=== PATIENT | male | born 1995 | race Caucasian/White ===

== ENCOUNTER 2018-05-21 13:24 | Emergency (ER) | payer BC ==
[2018-05-21] MEDS ORDERED: Ondansetron ODT TAB* 4 MG PO ONE (13:29)
[2018-05-21] MEDS ORDERED: NS 0.9% 1000 ML* 1,000 ML IV ONE (13:40)
[2018-05-21] MEDS ORDERED: Ondansetron INJ* 2 MG/ML VIAL IV ONE (13:40)
[2018-05-21] MEDS ORDERED: levETIRAcetam IV* 1,000 MG in NS 0.9% 100 ML* 100 ML IVPB ONE (13:40)
[2018-05-21] MEDS ORDERED: LORazepam INJ* 2 MG/ML 1 ML VIAL IV ONE (13:40)
[2018-05-21] MEDS ORDERED: Ondansetron ODT TAB* 4 MG ONE (13:51)
[2018-05-21] MEDS ORDERED: D5NS 0.9% 1000 ML BAG* 1,000 ML IV SCH (14:00)
[2018-05-21 14:11] LABS: ABS Basophils 0 10^3/ul (0-0.2); ABS Eosinophils 0.1 10^3/ul (0-0.6); ABS Lymphocytes 1.5 10^3/ul (1.0-4.8); ABS Monocytes 0.8 10^3/ul (0-0.8); ABS Neutrophils 7.2 10^3/ul (1.5-7.7); ABS Nucleated RBC 0 10^3/ul; Eosinophil % 1.2 % (0-6); Hematocrit 42 % (42-52); Hemoglobin 14.8 g/dl (14.0-18.0); Lymphocyte % 15.2 % (25-47); Mean Corpuscular HGB Conc 35 g/dl (31-36); Mean Corpuscular Hemoglobin 31 pg (27-31); Mean Corpuscular Volume 87 fL (80-94); Mean Platelet Volume 8.2 um3 (7.4-10.4); Nucleated Red Blood Cells % 0; Platelet Count 267 10^3/ul (150-450); Red Blood Count 4.83 10^6/ul (4.00-5.40); Red Cell Distribution Width 13 % (10.5-15); White Blood Count 9.6 10^3/ul (3.5-10.8)
[2018-05-21 14:16] LABS: INR 0.93 (0.77-1.02)
[2018-05-21 14:21] VITALS: BP 108/64
[2018-05-21 14:34] LABS: EGFR Non-African American 91.2 (>60)
--- NOTE | 2018-05-21 14:41 | RAD ---
INDICATION: Seizure. History of seizures COMPARISON: MRI brain December 28, 2016; CT brain June 06, 2016 TECHNIQUE: Noncontrast axial source images were acquired from the skull base to the vertex. FINDINGS: Ventricles/sulci: The ventricles and cisterns are normal in size and configuration for age. Brain parenchyma: There is no focal parenchymal finding, evidence of intracranial mass, or intracranial mass effect. Intracranial hemorrhage:None. Extra-axial spaces: There are no abnormal extra axial fluid collections or evidence of extra-axial mass. Calvarium: There is no calvarial fracture or other calvarial abnormality. Scalp: There is no evidence of scalp or extracalvarial soft tissue abnormality. Paranasal sinuses/mastoid: The paranasal sinuses and mastoid air cells are clear. Other: None. IMPRESSION: NEGATIVE NONCONTRAST CT EXAMINATION
--- NOTE | 2018-05-21 15:52 | ED ---
Andriy Davenport Natalie, scribed for Dave Whitfield MD on 05/21/18 at 1351 . Neurological HPI - HPI Summary HPI Summary: The patient is a 23 y/o M presenting to [facility] c/o having a seizure while in line to order food [employer]. He states that he knew he was going to have a seizure because he felt pressure on his head like a headache, and then he blacked out for a few seconds with LOC. Per witnesses (the pt's friends) the pt began yelling, tightened up, and hit his mouth on the ground as they lowered him to prevent injury. His friends also report that it seemed like he had two seizures because he lost consciousness, regained consciousness, and then lost it again before returning to normal. Pt additionally c/o tongue biting, but denies nausea, vomiting, and incontinence. He was diagnosed with seizures approximately two years ago. He was prescribed Lamotrigine in July 2017, but stopped taking it in October 2017 because he was having side effects such as drowsiness, although his seizures were controlled. He has had three seizures since he stopped taking the medication, but had been six months seizure-free prior to stopping. - History of Current Complaint Chief Complaint: EDSeizure Stated Complaint: SEIZURE Hx Obtained From: Patient Onset/Duration: Sudden Onset, Started minutes ago, Resolved Timing: Sudden Onset Onset Severity: Moderate Current Severity: None Seizure Severity: Moderate Number of Seizures: 1 - possibly two as witnessed by friends present Pain Intensity: 0 Pain Scale Used: 0-10 Numeric Character: Pressure - head, Other: - POSITIVE: tongue biting, LOC; NEGATIVE: nausea, vomiting, incontinence - Allergy/Home Medications Allergies/Adverse Reactions: Allergies Allergy/AdvReac Type Severity Reaction Status Date / Time No Known Allergies Allergy Verified 05/21/18 13:29 PMH/Surg Hx/FS Hx/Imm Hx Endocrine/Hematology History: Denies: Hx Diabetes, Hx Thyroid Disease Cardiovascular History: Denies: Hx Hypertension, Hx Pacemaker/ICD Respiratory History: Denies: Hx Asthma, Hx Chronic Obstructive Pulmonary Disease (COPD) GI History: Denies: Hx Ulcer History: Denies: Hx Renal Disease Sensory History: Denies: Hx Hearing Aid Neurological History: Reports: Hx Seizures Psychiatric History: Denies: Hx Panic Disorder - Surgical History Surgery Procedure, Year, and Place: Hernia Repair AGE 9 Infectious Disease History: No Infectious Disease History: Denies: Hx Hepatitis, Hx Human Immunodeficiency Virus (HIV), Traveled Outside the [place] in Last 30 Days - Family History Known Family History: Negative: Seizure Disorder - Social History Alcohol Use: Weekly Substance Use Type: Reports: Marijuana Substance Use Comment - Amount & Last Used: last used today 11/18 Smoking Status (MU): Light Every Day Tobacco Smoker Review of Systems ENT: Other - tongue biting Gastrointestinal: Negative - incontinence Negative: Vomiting, Nausea Negative: incontinence Neurological: Other - seizure activity with LOC Positive: Headache - pressure All Other Systems Reviewed And Are Negative: Yes Physical Exam - Summary Physical Exam Summary: Appearance: Well-appearing, Well-nourished Skin: Warm Eyes: Normal ENT: R tongue contusion after biting Neck: Supple, nontender Respiratory: Clear to auscultation Cardiovascular: Slightly tachycardic. Normal S1, S2. Abdomen: Soft, nontender, Musculoskeletal: Normal, Strength/ROM Intact Neurological: Normal, A&Ox3, GCS: 15, NO urine or fecal incontinence Psychiatric: Normal General: No acute distress, anxious Triage Information Reviewed: Yes Vital Signs On Initial Exam: Initial Vitals Temp Pulse Resp BP Pulse Ox 99.2 F 123 21 141/78 120 05/21/18 13:28 05/21/18 13:28 05/21/18 13:28 05/21/18 13:28 05/21/18 13:28 Vital Signs Reviewed: Yes Diagnostics - Vital Signs Vital Signs Temp Pulse Resp BP Pulse Ox 05/21/18 13:28 99.2 F 123 21 141/78 120 - Laboratory Lab Results: Lab Results 05/21/18 05/21/18 Range/Units 14:05 14:05 WBC 9.6 (3.5-10.8) 10^3/ul RBC 4.83 (4.00-5.40) 10^6/ul Hgb 14.8 (14.0-18.0) g/dl Hct 42 (42-52) % MCV 87 (80-94) fL MCH 31 (27-31) pg MCHC 35 (31-36) g/dl RDW 13 (10.5-15) % Plt Count 267 (150-450) 10^3/ul MPV 8.2 (7.4-10.4) um3 Neut % (Auto) 74.9 (38-83) % Lymph % (Auto) 15.2 L (25-47) % [place] % (Auto) 8.3 H (0-7) % Eos % (Auto) 1.2 (0-6) % Baso % (Auto) 0.4 (0-2) % Absolute Neuts (auto) 7.2 (1.5-7.7) 10^3/ul Absolute Lymphs (auto) 1.5 (1.0-4.8) 10^3/ul Absolute Monos (auto) 0.8 (0-0.8) 10^3/ul Absolute Eos (auto) 0.1 (0-0.6) 10^3/ul Absolute Basos (auto) 0 (0-0.2) 10^3/ul Absolute Nucleated RBC 0 10^3/ul Nucleated RBC % 0 INR (Anticoag Therapy) 0.93 (0.77-1.02) Result Diagrams: 05/21/18 14:05 05/21/18 14:05 Lab Statement: Any lab studies that have been ordered have been reviewed, and results considered in the medical decision making process. - CT Brain CT CT Interpretation: No Acute Changes - Negative noncontrast CT examination. ED physician has reviewed this report. CT Interpretation Completed By: Radiologist - EKG 13:56 Cardiac Rate: NL EKG Rhythm: Sinus Rhythm - 95 BPM EKG Interpretation: No ST T wave changes. Course/Dx - Course Course Of Treatment: Labs WNL, CT head neg, No new seizure activity noted during ED stay. Pt remained alert awake, clinically improved anxiety with IVF and ativan 1mg IV. Spoke to Dr Marmolejo- neurologist who agreed with 1g IV Keppra while in ED, then d/c home on PO Keppra 500mg BID and f/u at his office next week - Diagnoses Provider Diagnoses: Seizure disorder, Noncompliance with medication regimen Discharge - Sign-Out/Discharge Documenting (check all that apply): Discharge/Admit/Transfer - Pt will be discharged home. - Discharge Plan Condition: Stable Disposition: HOME Prescriptions: levETIRAcetam TAB* [Keppra TAB*] 500 mg PO BID 30 Days #60 tab Patient Education Materials: Epilepsy (ED) Referrals: Yolanda Marmolejo MD [Medical Doctor] - 2 Days Oziel Vilchis MD [Primary Care Provider] - Additional Instructions: Please take medication as prescribed. Follow up with Dr. Marmolejo, neurology, in 2-3 days. Return to the emergency department for any new or worsening symptoms. - Billing Disposition and Condition Condition: STABLE Disposition: Home The documentation as recorded by the Andriy hanks Natalie accurately reflects the service I personally performed and the decisions made by me, Dave Whitfield MD.
== END 2018-05-21 15:55 | disposition home or self-care (01) ==
LOC: ED 13:24
DX: G40.909 Epilepsy, unspecified, not intractable, without status epilepticus (principal); Z91.14 Patient's other noncompliance with medication regimen; F17.200 Nicotine dependence, unspecified, uncomplicated; R94.31 Abnormal electrocardiogram [ECG] [EKG]; I45.10 Unspecified right bundle-branch block; R51 Headache
CPT/HCPCS: 36415; 70450; 80053; 83735; 85025; 85610; 93005; 96365; 96375; 99282; A9270-GY; J2060